=== PATIENT | female | born 2005 ===

== ENCOUNTER 2025-02-01 00:36 | Emergency (ER) | payer OTHER, SELFPAY ==
[2025-02-01 00:40] VITALS: BP 130/90; PULSE 65; RESP 18; TEMP 36.7; O2SAT 99; BMI 26.6
--- NOTE | 2025-02-01 00:49 | ED_ITS ---
HPI - Abdominal Pain General Time Seen by Provider: 00:49 Date Seen: 02/01/25 Chief Complaint: Abdominal Pain Stated Complaint: Abdominal Pain Time Seen by Provider: 02/01/25 00:48 Source: patient and family (Significant other) Mode of arrival: EMS History of Present Illness HPI narrative: Marisol is a 19-year-old female with past medical history of chronic abdominal pain who presents to the emergency department by EMS for evaluation of abdominal pain. History is limited, per EMS patient complains of chronic abdominal pain, worsening pain for the past 3 hours, patient agitated, at was given droperidol prior to arrival. Patient's significant other reports history of chronic abdominal pain, with intermittent episodes of flare ups, typically improve with medications, time. Denies any recent fever, chills, chest pain, shortness of breath. Patient has history of cholecystectomy, appendectomy, tubal ligation, section. Related Data Home Medications ?Medication ?Instructions ?Recorded ?Confirmed No Known Home Medications 02/01/2508/27 Allergies Allergy/AdvReac Type Severity Reaction Status Date / Time No Known Drug Allergies Allergy Verified 02/01/25 00:42 Review of Systems Narrative Past medical history, past surgical history, medications, allergies, family history, and social history were reviewed with the patient. No additional pertinent items. A medically appropriate review of systems was performed with pertinent positives and negatives noted in HPI, all other systems negative. [facility] Medical History (Updated 02/01/25 @ 03:21 by Latoya Herman MD) Chronic abdominal pain ?R10.9 - Unspecified abdominal pain (ICD-10) ?G89.29 - Other chronic pain (ICD-10) Appendicitis ?K37 - Unspecified appendicitis (ICD-10) Biliary colic ?K80.50 - Calculus of bile duct without cholangitis or cholecystitis without obstruction (ICD-10) Surgical History (Updated 02/01/25 @ 00:53 by Brett Valencia RN) History of tubal ligation ?Z98.51 - Tubal ligation status (ICD-10) History of section ?Z98.891 - History of uterine scar from previous surgery (ICD-10) History of cholecystectomy ?Z90.49 - Acquired absence of other specified parts of digestive tract (ICD- 10) History of appendectomy ?Z90.49 - Acquired absence of other specified parts of digestive tract (ICD- 10) Exam Narrative: Exam Narrative: Gen: Afebrile, sleepy, in distress secondary to pain HEENT: Normocephalic, atraumatic, conjunctiva normal. MMM Neck: non-tender, supple Cardio: regular rate. regular rhythm Resp: Normal work of breathing, no respiratory distress, lungs clear bilaterally, no wheezing, rhonchi, rales Chest/Back: no visual signs of trauma, no midline tenderness, no CVA tenderness Abdomen: soft, non distension, + tenderness to palpation upper abdomen, no rebound, guarding, no peritoneal signs Neuro: alert and fully oriented. CN II-XII grossly intact. Grossly normal strength and sensation in all extremities. MSK: no deformities. Normal range of motion Integumentary/Skin: no rash visualized, normal color Psych: normal affect, normal behavior Const: Vital Signs, click to edit/add: Vital Signs - 24 hr 02/01/25 00:40 02/01/25 02:45 02/01/25 03:41 Temperature 98.0 F 98.0 F 98.0 F Pulse Rate [Right Pulse Oximeter] 65 60 Respiratory Rate 18 18 Blood Pressure [Ri ght Upper Arm] 130/90 H 125/85 Pulse Oximetry 99 99 Oxygen Delivery Me thod Room Air Room Air 02/01/25 03:42 Temperature 98.0 F Pulse Rate [Right Pulse Oximeter] 60 Respiratory Rate 18 Blood Pressure [Ri ght Upper Arm] 125/85 Pulse Oximetry Oxygen Delivery Me thod Course Vital Signs Vital signs: Initial Vital Signs Temperature 98.0 F 02/01/25 00:40 Temperature Source Temporal Artery Scan 02/01/25 00:40 Pulse Rate 65 02/01/25 00:40 Respiratory Rate 18 02/01/25 00:40 Blood Pressure 130/90 H 02/01/25 00:40 Blood Pressure Mean 103 02/01/25 00:40 Blood Pressure Position Supine 02/01/25 00:40 Pulse Oximetry 99 02/01/25 00:40 Oxygen Delivery Method Room Air 02/01/25 00:40 Vital Signs Temperature 98.0 F 02/01/25 00:40 Pulse Rate 65 02/01/25 00:40 Respiratory Rate 18 02/01/25 00:40 Blood Pressure 130/90 H 02/01/25 00:40 Pulse Oximetry 99 02/01/25 00:40 Oxygen Delivery Method Room Air 02/01/25 00:40 Temperature 98.0 F 02/01/25 03:42 Pulse Rate 60 02/01/25 03:42 Respiratory Rate 18 02/01/25 03:42 Blood Pressure 125/85 02/01/25 03:42 Pulse Oximetry 99 02/01/25 03:41 Oxygen Delivery Method Room Air 02/01/25 03:41 Medications Administered Medications: Discontinued Medications Generic Name Dose Route Start Last Admin Trade Name Alva PRN Reason Stop Dose Admin Famotidine 20 mg 02/01/25 02:38 02/01/25 02:45 Famotidine 10 Mg/Ml Inj IVP 02/01/25 02:39 20 mg ONCE ONE Administration Sodium Chloride 1,000 mls @ 1,000 mls/hr 02/01/25 01:00 02/01/25 02:14 0.9 % Sodium Chloride 1000 Ml IV 02/01/25 01:59 Infused .Q1H AME Infusion Ketorolac Tromethamine 15 mg 02/01/25 02:38 02/01/25 02:45 Ketorolac 15 Mg/Ml Inj IVP 02/01/25 02:39 15 mg ONCE ONE Administration Ondansetron HCl 4 mg 02/01/25 02:39 02/01/25 02:44 Ondansetron 2 Mg/Ml Inj IVP 02/01/25 02:40 4 mg ONCE ONE Administration MDM - Abdominal Pain MDM Narrative Medical decision making narrative: Marisol is a 19-year-old female with past medical history of chronic abdominal pain who presents the emergency department for for evaluation of abdominal pain. Upon arrival patient is nontoxic appearing, afebrile, sleepy secondary to droperidol given by EMS prior to arrival. Patient's significant other reports history of chronic abdominal pain with flare up similar. Reports history of cholecystectomy, appendectomy, tubal ligation, section. Per chart review patient was recently seen at [facility] for similar episode on 12/07/2024. Patient was treated with droperidol, comprehensive labs reassuring, and patient was discharged home. Upon arrival patient was treated with IV Pepcid, Toradol, 1 L IV fluid bolus. Comprehensive labs remarkable for mild leukocytosis with white blood cell count 11.4, hemoglobin 13.8, potassium slightly low at 3.5, anion gap elevated at 19, AST and ALT slightly elevated at 41, 45, normal bilirubin, normal lipase. On re-evaluation patient continue resting comfortably, sleeping, no distress however when awake patient she states she feels on well. Patient remains hemodynamically stable, I reviewed comprehensive labs with patient. Given patient's history of similar presentation, nonsurgical abdomen, reassuring laboratory test, extensive surgical history, low suspicious for acute intra- abdominal infection that would require CT imaging. I did discuss results and considered CT imaging however after discussion with patient, significant other, will hold off on imaging or further testing at this time. Significant other states this is similar to her prior presentations and feels comfortable with bringing her home to continue to rest. Plan for discharge with continued supportive care, close outpatient follow-up, strict return precautions discussed. Patient understands and agrees with the plan.. Medical Records Attestation: I reviewed the patient's medical records. Lab Data Attestation: I reviewed the patient's lab results. Labs: Lab Results 02/01/25 Range/Units 01:06 WBC 11.43 H (4.50-11.00) K/uL RBC 4.69 (4.00-5.20) m/uL Hgb 13.8 (12.0-16.0) gm/dL Hct 39.6 (33.0-51.0) % MCV 84 (80-100) fL MCH 29 (26-34) pg MCHC 35 (32-36) gm/dL RDW Coeff of Paula 12.6 (11.5-15.5) % Plt Count 239 (140-440) K/uL Neut % (Auto) 82.8 H (42.0-72.0) % Lymph % (Auto) 10.3 L (20-44) % [place] % (Auto) 4.6 (0.0-11.0) % Eos % (Auto) 0.1 (0.0-7.0) % Baso % (Auto) 0.5 (0.0-3.0) % Neut # (Auto) 9.50 H (1.7-7.0) K/uL Lymph # (Auto) 1.20 (0.90-2.90) K/uL [place] # (Auto) 0.50 (0.00-0.90) K/UL Eos # (Auto) 0.00 (0.00-0.50) K/uL Baso # (Auto) 0.10 (0.00-0.30) K/uL Abs Immat Gran (auto) 0.20 (0.00-0.30) K/uL Imm/Tot Granulo (auto) 1.7 % Sodium 142 (135-149) mmol/L Potassium 3.5 L (3.6-5.1) mmol/L Chloride 107 (96-114) mmol/L Carbon Dioxide 16 L (20-32) mmol/L Anion Gap 19 H (7-15) mEq/L BUN 9 (5-24) mg/dL Creatinine 0.8 (0.5-1.5) mg/dL Estimated Creat Clear 100.10 Estimated GFR 107 ml/min Glucose 175 H (60-115) mg/dL Calcium 10.4 (8.4-10.6) mg/dL Total Bilirubin 1.4 (0.1-1.5) mg/dL AST 41 H (12-35) U/L ALT 45 H (4-35) U/L Alkaline Phosphatase 53 (40-150) U/L Total Protein 8.4 H (6.0-8.3) g/dL Albumin 5.0 (3.3-5.0) g/dL Lipase 65 (23-300) U/L HCG, Qual Negative (Negative) Ethyl Alcohol < 0.01 (0.01-0.03) % Discharge Plan Discharge Clinical Impression: Abdominal pain Patient Disposition: Home, Self-Care Condition: Improved Additional Instructions: Please follow-up with your primary care provider in the next 3-5 days for further evaluation and follow-up. Please call to schedule appointment. Please rest, drink plenty of fluids. Please take [id number] Tylenol, ibuprofen as needed for pain. Please return to the emergency department if you develop high fever, severe pain, persistent vomiting, worsening symptoms. It was a pleasure taking care of you today. We hope you feel better soon. Prescriptions: No Action No Known Home Medications Follow Up/Referrals: Provider,Not a Local [Primary Care Provider, Family Practice] Stand Alone Forms: [employer] Info Instructions
[2025-02-01 01:16] LABS: Hematocrit 39.6 % (33.0-51.0); Hemoglobin* 13.8 gm/dL (12.0-16.0); Immature Granulocytes Pct Auto 1.7 %; Mean Corpuscular HGB Conc 35 gm/dL (32-36); Mean Corpuscular Hemoglobin 29 pg (26-34); Mean Corpuscular Volume 84 fL (80-100); RDW Coefficient of Variation % 12.6 % (11.5-15.5); Red Blood Count 4.69 m/uL (4.00-5.20); White Blood Count* 11.43 K/uL (4.50-11.00)
[2025-02-01 01:27] LABS: Immature Granulocytes Abs Auto 0.20 K/uL (0.00-0.30); Lymphocytes Absolute Auto 1.20 K/uL (0.90-2.90); Slide Review Reflex No
[2025-02-01 01:31] LABS: Albumin* 5.0 g/dL (3.3-5.0); Chloride* 107 mmol/L (96-114); Potassium* 3.5 mmol/L (3.6-5.1); Sodium* 142 mmol/L (135-149)
[2025-02-01 01:33] LABS: Blood Urea Nitrogen* 9 mg/dL (5-24); Creatinine* 0.8 mg/dL (0.5-1.5); Est. Creatinine Clearance* 100.10; Estimated Glomerular Filt Rate 107 ml/min
[2025-02-01 01:34] LABS: Alanine Aminotransferase* 45 U/L (4-35); Alkaline Phosphatase* 53 U/L (40-150); Anion Gap 19 mEq/L (7-15); Aspartate Amino Transferase* 41 U/L (12-35); Bilirubin Total* 1.4 mg/dL (0.1-1.5); Calcium* 10.4 mg/dL (8.4-10.6); Carbon Dioxide* 16 mmol/L (20-32); Glucose* 175 mg/dL (60-115); Total Protein* 8.4 g/dL (6.0-8.3)
[2025-02-01 01:37] LABS: Ethanol* < 0.01 % (0.01-0.03)
[2025-02-01 02:29] LABS: HCG Qualitative Serum* Negative (Negative)
[2025-02-01] MEDS: ONDANSETRON 2 MG/ML inj 4 MG IVP (02:44)
[2025-02-01 02:45] VITALS: TEMP 36.7
[2025-02-01] MEDS: FAMOTIDINE 10 MG/ML inj 20 MG IVP (02:45)
--- OUTSIDE RECORDS SUMMARY | 2025-02-01 03:10 | XMS_ITS | Clinical Summary ---
Author Organization [place] Address [facility] [place] [address] Care Team Providers Care Ingot Stripper Name Role Phone Yun Blake Primary Care Provider [phone] Allergies No known active allergies Medications doxylamine (UNISOM) 25 MG TABS tablet Take 1 tablet (25 mg) by mouth at bedtime for 14 days for nausea and vomiting. 14 tablet 04/23/2023 Active ondansetron (ZOFRAN ODT) 4 MG ODT tab Take 1 tablet (4 mg) by mouth every 8 hours as needed for nausea or vomiting 10 tablet 04/23/2023 Active prochlorperazin e (COMPAZINE) 10 MG tablet Take 1 tablet (10 mg) by mouth every 6 hours as needed for nausea or vomiting 20 tablet 05/02/2023 Active Active Problems Problem Noted Date Diagnosed Date Appendicitis 08/29/2021 Vitamin D deficiency 05/09/2016 Non morbid obesity due to excess calories 2015 Encounters Date Type Department Care Team Description 12/07/2024 3:47 AM CDT - 12/07/2024 8:[address] 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 Gender Identity Not on file Sexual Orientation Not on file Last Filed Vital Signs Vital Sign Reading Time Taken Comments Blood Pressure 129/82 12/07/2024 3:54 AM CDT Pulse 77 12/07/2024 3:54 AM CDT Temperature 36.5 C (97.7 F) 12/07/2024 3:54 AM CDT Respiratory Rate 18 12/07/2024 3:54 AM CDT Oxygen Saturation 100% 12/07/2024 3:54 AM CDT Inhaled Oxygen Concentration - - Weight 112.5 kg (248 lb) 05/02/2023 8:57 AM CDT Height 165.1 cm (5' 5) 05/02/2023 8:57 AM CDT Body Mass Index 41.27 05/02/2023 8:57 AM CDT Plan of Treatment Health Maintenance Due Date Last Done Comments ADVANCE CARE PLANNING 2003 ANNUAL REVIEW OF HM ORDERS 2003 HPV VACCINE (2 - 2-dose series) 03/10/2018 09/07/2017 MENINGITIS B VACCINE (1 of 2 - Standard) 2019 YEARLY PREVENTIVE VISIT 03/08/2023 03/08/2022 COVID-19 VACCINE (1 - 2023- season) 2024 PAP 2024 PHQ-2 (once per calendar year) 2024 CHLAMYDIA SCREENING 09/16/2024 09/17/2023, INFLUENZA VACCINE (#1) 2025 DTAP/TDAP/TD VACCINE (8 - Td or Tdap) 08/24/2032 08/24/2022, 09/07/2017, 06/17/2008, Additional history exists ZOSTER VACCINE (1 of 2) 2053 PNEUMOCOCCAL VACCINE: PEDIATRICS (0 to 5 YEARS) AND AT-RISK PATIENTS (6 to 49 YEARS) Aged Out 2003, 2003, 2003 No longer eligible based on patient's age to complete this topic HEPATITIS B VACCINE Completed 03/25/2004, 2003, 2003 MENINGITIS VACCINE Aged Out 09/07/2017 No longer eligible based on patient's age to complete this topic HEPATITIS C SCREENING Completed 05/04/2023 HIV SCREENING Completed 05/04/2023 Procedures Procedure Name Priority Date/Time Associated Diagnosis Comments CBC WITH PLATELETS & DIFFERENTIAL STAT 12/07/2024 3:57 AM CDT HEPATIC FUNCTION PANEL STAT 12/07/2024 3:57 AM CDT LIPASE STAT 12/07/2024 3:57 AM CDT ETHANOL LEVEL BLOOD STAT 12/07/2024 3 :57 AM CDT CBC WITH PLATELETS AND DIFFERENTIAL STAT 12/07/2024 3:57 AM CDT BASIC METABOLIC PANEL STAT 12/07/2024 3:57 AM CDT EKG 12-LEAD, TRACING ONLY STAT 12/07/2024 3:54 AM CDT from Last 3 Months Results * CBC with platelets and differential (12/07/2024 3:57 AM CDT) WBC Count 7.1 4.0 - 11.0 10e3/uL 12/07/2024 4:14 AM CDT [facility] RBC Count 4.23 3.80 - 5.20 10e6/uL 12/07/2024 4:14 AM CDT [facility] Hemoglobin 12.3 11.7 - 15.7 g/dL 12/07/2024 4:14 AM CDT [facility] Hematocrit 35.5 35.0 - 47.0 % 12/07/2024 4:14 AM CDT [facility] MCV 84 78 - 100 fL 12/07/2024 4:14 AM CDT [facility] MCH 29.1 26.5 - 33.0 pg 12/07/2024 4:14 AM CDT [facility] MCHC 34.6 31.5 - 36.5 g/dL 12/07/2024 4:14 AM CDT [facility] RDW 12.8 10.0 - 15.0 % 12/07/2024 4:14 AM CDT [facility] Platelet Count 211 150 - 450 10e3/uL 12/07/2024 4:14 AM CDT [facility] % Neutrophils 62 % 12/07/2024 4:14 AM CDT [facility] % Lymphocytes 28 % 12/07/2024 4:14 AM CDT [facility] % Monocytes 7 % 12/07/2024 4:14 AM CDT [facility] % Eosinophils 1 % 12/07/2024 4:14 AM CDT [facility] % Basophils 1 % 12/07/2024 4:14 AM CDT [facility] % Immature Granulocytes 0 % 12/07/2024 4:14 AM CDT [facility] NRBCs per 100 WBC 0 <1 /100 025 4:14 AM CDT [facility] Absolute Neutrophils 4.4 1.6 - 8.3 10e3/uL 12/07/2024 4:14 AM CDT [facility] Absolute Lymphocytes 2.0 0.8 - 5.3 10e3/uL 12/07/2024 4:14 AM CDT [facility] Absolute Monocytes 0.5 0.0 - 1.3 10e3/uL 12/07/2024 4:14 AM CDT [facility] Absolute Eosinophils 0.1 0.0 - 0.7 10e3/uL 12/07/2024 4:14 AM CDT [facility] Absolute Basophils 0.1 0.0 - 0.2 10e3/uL 12/07/2024 4:14 AM CDT [facility] Absolute Immature Granulocytes 0.0 <=0.4 10e3/uL 12/07/2024 4:14 AM CDT [facility] Absolute NRBCs 0.0 10e3/uL 12/07/2024 4:14 AM CDT [facility] Blood BLOOD SPECIMEN / Unknown Venipuncture / Unknown 12/07/2024 3:57 AM CDT 12/07/2024 4:11 AM CDT us Franklyn Vogt MD LAB - BLO OD ORDERABLES Final Result [facility] Lab [address] Lab (1st floor, no room number) [place] [address], [place] * Lipase (12/07/2024 3:57 AM CDT) Lipase 26 13 - 60 U/L 12/07/2024 4:38 AM CDT [facility] Blood BLOOD SPECIMEN / Unknown Venipuncture / Unknown 12/07/2024 3:57 AM CDT 12/07/2024 4:11 AM CDT Franklyn Vogt MD LAB - BLO OD ORDERABLES Final Result [facility] Acute [facility] Lab [address] Lab (1st floor, no room number) [place] [address], [facility] * Hepatic function panel (12/07/2024 3:57 AM CDT) Pathologist [facility] Protein Total 7.3 6.4 - 8.3 g/dL 12/07/2024 6:04 AM CDT [facility] Albumin 4.2 3.5 - 5.2 g/dL 12/07/2024 6:04 AM CDT [facility] Bilirubin Total 0.5 <=1.2 mg/dL 12/07/2024 6:04 AM CDT [facility] Alkaline Phosphatase 49 40 - 150 U/L 12/07/2024 6:04 AM CDT [facility] AST 33 0 - 45 U/L 12/07/2024 6:04 AM CDT [facility] ALT 41 0 - 50 U/L 12/07/2024 6:04 AM CDT [facility] Bilirubin Direct 0.11 0.00 - 0.30 mg/dL 12/07/2024 6:04 AM CDT [facility] Comment:As of 24, refer ence ranges and trending lines may vary depending on the testing location. Blood BLOOD SPECIMEN / Unknown Venipuncture / Unknown 12/07/2024 3:57 AM CDT 12/07/2024 4:11 AM CDT Franklyn Vogt MD LAB - BLO OD ORDERABLES Final Result [facility] Acute [facility] Lab [address] Lab (1st floor, no room number) [place] [address] * (ABNORMAL) Ethanol Level Blood (12/07/2024 3:57 AM CDT) Ethanol Level Blood 0.16(H) <=0.01 g/dL 12/07/2024 4:38 AM CDT [facility]ORATORY Blood BLOOD SPECIMEN / Unknown Venipuncture / Unknown 12/07/2024 3:57 AM CDT 12/07/2024 4:11 AM CDT Franklyn Vogt MD LAB - BLO OD ORDERABLES Final Result [facility] Lab [address] Lab (1st floor, no room number) [place] [address] * (ABNORMAL) Basic metabolic panel (12/07/2024 3:57 AM CDT) Sodium 136 135 - 145 mmol/L 12/07/2024 4:38 AM CDT LABORATORY Potassium 3.2(L) 3.4 - 5.3 mmol/L 12/07/2024 4:38 AM CDT LABORATORY Chloride 102 98 - 107 mmol/L 12/07/2024 4:38 AM CDT LABORATORY Carbon Dioxide (CO2) 18(L) 22 - 29 mmol/L 12/07/2024 4:38 AM CDT LABORATORY Anion Gap 16(H) 7 - 15 mmol/L 12/07/2024 4:38 AM CDT LABORATORY Urea Nitrogen 7.6 6.0 - 20.0 mg/dL 12/07/2024 4:38 AM CDT LABORATORY Creatinine 0.72 0.51 - 0.95 mg/dL 12/07/2024 4:38 AM CDT LABORATORY GFR Estimate >90 >60 mL/min/1.7 3m2 12/07/2024 4:38 AM CDT [facility] Comment:eGFR calculated usin 2020 CKD-EPI equation. Calcium 9.3 8.8 - 10.4 mg/dL 12/07/2024 4:38 AM CDT [facility] Glucose 113(H) 70 - 99 mg/dL 12/07/2024 4:38 AM CDT [facility] Blood BLOOD SPECIMEN / Unknown Venipuncture / Unknown 12/07/2024 3:57 AM CDT 12/07/2024 4:11 AM CDT us Franklyn Vogt MD LAB - BLO OD ORDERABLES Final Result [facility] [address] [facility], no room number) [place] [address] * EKG 12-lead, tracing only (12/07/2024 3:54 AM CDT) Systolic Blood Pressure mmHg RADIOLOGY RESULTS Diastolic Blood Pressure mmHg RADIOLOGY RESULTS Ventricular Rate 74 BPM RAD IOLOGY RESULTS Atrial Rate 74 BPM RADIOLOG Y RESULTS WA Interval 150 ms RADIOLOG Y RESULTS QRS Duration 106 ms RADIOLO GY RESULTS QT 396 ms RADIOLOGY RESULTS QTc 439 ms RADIOLOGY RESULTS P [place] 39 degrees RADIOLOGY RESULTS R AXIS 93 degrees RADIOLOGY RESULTS T [place] 33 degrees RADIOLOGY RESULTS Interpretation ECG Unconfirmed report - interpretation of this ECG is computer generated - see medical record for final interpretation Sinus rhythm Rightward axis Nonspecific ST abnormality Abnormal ECG No previous ECGs available Confirmed by - EMERGENCY ROOM, PHYSICIAN ([id number]), publications editor MYRON BLAKE (Mendoza) on 12/09/2024 8:20:56 AM RADIOLOGY RESULTS 12/07/2024 3:54 AM CDT 12/09/2024 8:20 AM CDT us Franklyn Vogt MD ECG ORDER MAGALIS Edited Result - Final RADIOLOGY RESULTS from Last 3 Months Insurance [facility] [id number] [place] [address] [facility] Care Teams Ingot Stripper Relationship Specialty Start Date End Date Yun Blake PCP - General 04/23/23
--- OUTSIDE RECORDS SUMMARY | 2025-02-01 03:11 | XMS_ITS | Clinical Summary ---
Author Organization [facility] Address [address] [place] [id number] Care Team Providers Care Production Pattern Maker Name Role Phone None Reported, Pcp Primary Care Provider Unavail able Source Comments Patient records contain information from all sites at [facility]. For routine questions regarding patient records, call [phone] during business hours, M-F 8:00 AM - 5:00 PM Central Time. 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 Gender Identity Not on file Sexual Orientation Not on file Last Filed Vital Signs Vital Sign Reading Time Taken Comments Blood Pressure 114/60 05/07/2024 11:29 AM FACILITIES MAINTENANCE ASSISTANT Pulse 56 05/07/2024 11:29 AM FACILITIES MAINTENANCE ASSISTANT Temperature 36.4 C (97.6 F) 05/07/2024 9:19 AM FACILITIES MAINTENANCE ASSISTANT Respiratory Rate - - Oxygen Saturation 100% 05/07/2024 11:29 AM FACILITIES MAINTENANCE ASSISTANT Inhaled Oxygen Concentration - - Weight 96.2 kg (212 lb) 05/07/2024 9:18 AM FACILITIES MAINTENANCE ASSISTANT Height - - Body Mass Index - - Plan of Treatment Health Maintenance Due Date Last Done Comments Cervical/Vaginal Cancer Screening 2003 Chlamydia and Gonorrhea Screening 2003 HIV Screening 2003 Hearing Screening during Well Child Visit 2003 Hepatitis C Screening 2003 TB Screening during Well Child Visit 2003 1 week Well Child Check-Up 2003 1 month Well Child Check-Up 2003 2 month Well Child Check-Up 2003 4 month Well Child Check-Up 2003 9 month Well Child Check-Up 01/24/2004 Hepatitis B Vaccines (2 of 3 - 3-dose series) 04/22/2004 03/25/2004 15 month Well Child Check-Up 07/26/2004 18 month Well Child Check-Up 10/24/2004 2 year Well Child Check-Up 04/25/2005 30 month Well Child Check-Up 10/24/2005 3 year Well Child Check-Up 04/25/2006 Well Child Check-Up Completed in Past Year 04/25/2006 5 year Well Child Check-Up 04/25/2008 6 year Well Child Check-Up 04/25/2009 7 year Well Child Check-Up 04/25/2010 8 year Well Child Check-Up 04/25/2011 10 year Well Child Check-Up 04/25/2013 10 year Well Child Check-Up 04/25/2015 11 year Well Child Check-Up 04/25/2016 12 year Well Child Check-Up 04/25/2017 HPV Vaccines (2 - 2-dose series) 03/10/2018 09/07/2017 15 year Well Child Check-Up 04/25/2018 17 year Well Child Check-Up 04/25/2020 18 year Well Child Check-Up 04/25/2021 17 year Well Child Check-Up 04/25/2022 18 year Well Child Check-Up 04/25/2023 COVID-19 Vaccine ( season) 2024 19 year Well Child Check-Up 04/25/2024 Well Child Check-Up (WC) 04/25/2024 Depression Screening (Annual PHQ-2) 07/03/2024 Influenza Vaccine (#1) 2025 DTaP,Tdap,and Td Vaccines (8 - Td or Tdap) 08/24/2032 08/24/2022, 09/07/2017, 06/17/2008, Additional history exists Pneumococcal vaccine (0-49 years) Aged Out 2003, 2003, 2003 No longer eligible based on patient's age to complete this topic IPV Vaccines Completed 06/17/2008, 03/04, 2003, Additional history exists Meningococcal Vaccine Aged Out 09/07/2017 No [place] zo[place] eligible based on patient's age to complete this topic Hepatitis B Screening Discontinued 05/04/[address] [place] [phone] [facility] Care Teams Production Pattern Maker Relationship Specialty Start Date End Date None Reported, Pcp PCP - General 05/10/24
--- OUTSIDE RECORDS SUMMARY | 2025-02-01 03:11 | XMS_ITS | Clinical Summary ---
Author Organization [facility] Address [address] [place] [id number] Care Team Providers Care Electromechanical Assembly Technician Name Role Phone Yun Blake MD Unavailable [phone] Carmen Enriquez MD Unavailable Sonia Saleh RN Unavailable [phone] Pcp, No Primary Care Provider Unavailabl e Allergies No known active allergies Medications omeprazole (PRILOSEC) 20 mg Delayed-Release capsule TAKE 1 CAPSULE BY MOUTH EVERY DAY 30 MINUTES TO 1 HOUR BEFORE A MEAL 05/27/2024 Active oxyCODONE (ROXICODONE) 5 mg immediate release tabletIndication s:Sterilization consult,S/P laparoscopy with lysis of adhesions Take 1-2 Tablets (5-10 mg) by mouth every 4 hours if needed for Pain. 20 Tablet 06/28/2024 8:08 PM REJOINER 06/28/2024 Active naproxen (ALEVE) 220 mg tabletIndication s:Encounter for sterilization,St erilization consult,S/P laparoscopy with lysis of adhesions Take 1 Tablet (220 mg) by mouth every 12 hours. 40 Tablet 1 06/28/2024 8:08 PM REJOINER 06/28/2024 Active Active Problems Problem Noted Date Diagnosed Date Class 2 severe obesity with body mass index (BMI) of 35 to 39.9 with serious comorbidity 12/15/2023 Biliary colic 09/27/2023 Resolved Problems Problem Noted Date Diagnosed Date Resolved Date care in third trimester 09/29/2023 12/15/2023 Abdominal pain affecting 09/26/2023 12/15/2023 Supervision of normal 09/17/2023 12/15/2023 Abdominal pain affecting pre gnancy, antepartum 09/17/2023 12/15/2023 Previous delivery, antepartum 07/04/2023 12/15/2023 Overview (07/04/2023): Hx of 2022, Chorio, CPD arrest of dilation, Hx PP HTN: Normal appearing ANTERIOR placenta in current ([facility] Level II 07/04/23) Short interval between pregn ancies affecting in second trimester, antepartum 07/04/2023 12/15/2023 MPP High-risk supervision 06/23/2023 12/15/2023 Overview (06/23/2023): Marisol Esquivel : 2005 [facility] ULTRASOUND/TESTING PATIENT [facility] CONSULT ON Support person name: Community Support Specialist: NO ULTRASOUND TYPE: L2 REASON FOR VISIT: BMI 40 NEXT VISIT ALERTS: Final ELMER by Early US LMP Date: No LMP recorded (lmp unknown). Patient is . ELMER: Early US: Date: 05/02/23 GA: 12w0d ELMER: 11/17/23 IVF Date: PrePregnancy Weight: 245 # Height: 65 in BMI: 40.7 PLANS & FUTURE APPOINTMENTS: ULTRASOUND/GROWTH PLAN: - Through: - Growth: Next TESTING PLAN: - Testing: Through DELIVERY PLAN: - Scheduled delivery: - Preferred delivery location: PRIMARY DIAGNOSIS: 18 y.o. Estimated Date of Delivery: 11/17/23 MATERNAL 17 yo teen preg P C/B 10/2019 chorio, CPD arrest of dilation BMI 40 PREVIOUS ULTRASOUNDS: Next 07/04/23 (PCP) 05/02/23 GA: 12w0d ELMER: 11/17/23 ECHO: REFERRING PHYSICIAN/PHONE/LAST UPDATE: [facility], Primary MD approves scheduling of recommended ultrasounds/testing: No SPECIALISTS/CONSULTS: Include: Specialty MD Clinic Name Phone# [place] and ADDED TO PATIENT CARE TEAM GENETICS: NIPT: low risk AFP: planning CARE COORDINATION: PERTINENT LABS: Labs reviewed? Yes Normal? Yes 05/04/23 Blood type: A Rh Positive Antibody screen: Negative Non-[facility] labs need to be entered in [facility]? No PERTINENT MEDS: PROCEDURES: IF FGR <10% or EFW <2000 grams: Add FGRPCOM PLAN OF CARE: Original and updated POC Supervision of other normal , antepartum 05/16/2023 12/15/2023 Overview (05/16/2023): Gestational age at time of intake: 13w4d Patient preferred name: Marisol Macario Hx: Closely Spaced Pregnancies, Obesity, Hx PP HTN, Hx x 1 Concerns this : OB Hx: OB History Para Term AB Living 2 1 1 0 0 1 SAB IAB Ectopic Multiple Live Births 0 0 0 0 1 # Outcome Date GA Lbr Hugo/2nd Weight Sex Delivery Anes PTL Lv 2 Current 1 Term 10/30/22 38w6d 3.48 kg (7 lb 10.8 oz) M EPIDURAL CORRINE Complications: Chorioamnionitis, Prolonged latent phase, Cephalopelvic Disproportion, Arrest of dilatation Obstetric Comments G1: Labor was scheduled to be induced at 39w due to maternal morbid obesity, but presented in spontaneous labor at 38w5d with SVE 6/90/-2, but dilation stalled at 5cm. Mother had a positive sepsis screen with temperature 100F and rapid response team response was initiated for chorioamnionitis. Pitocin started to augment labor, but due to arrest of dilation (despite adequate MVUs) and developing hypertension, decision was made to proceed to primary section. Early GTT indicated: Yes If yes: BMI >25, pre- BMI > 40 Hx of thyroid disorder: No ASA indicated-High Risk for preeclampsia: Defer to MD - Hx PP HTN on meds Genetic screening: Desires Jessiedee Leija with gender BMI: 40.77 >30 recommended weight gain -# Level II FAS at [facility] indicated: pre- BMI>30: Yes Smoker: No HSV: Denies Ultrasound: 05/04/2023 - Single IUP at 11.6 weeks with ELMER 11/17/2023 Flu vaccine: Declined COVID-19 vaccine: Declined Pertussis Vaccine: Peds: [facility] - Dr. [place] Domestic violence screen: Denies Partners name: Latrice Donato Primigravida in first trimester 04/28/2023 07/04/2023 Nausea & vomiting 04/28/2023 07/04/2023 Abdominal pain 04/28/2023 07/04/2023 Constipation 04/28/2023 07/04/2023 Supervision of normal first , antepartum 04/21/2022 07/04/2023 Overview (10/24/2022): Estimated Date of Delivery: 11/07/22 OBHX: OB Provider:Hayden Occupation: [employer] FOB: Latrice Mobile Patrol Officer: Blood type: A positive First trimester screen:Panorama with insufficient DNA> referred to MPP>test was not repeated US:L2 normal, EFW 63%, posterior placenta ; Sex: Gtt/Hgb/treponema: early gtt never done, 128/12.1/neg GBS status: negative TDAP: 08/24/22 Flu: declines Pap: N/A due to age Breast pump rx: Completed 10/03/22 PP visit scheduled: COVID-19: declines, had COVID-19 04/2021 Alerts: 1) 04/02/22 US, has small AME 2) H/o Vitamin D deficiency>will supplement 3) H/o hypothyroidism as a child, resolved, no meds -TSH and free t4 ordered for IOB visit 4)BMI 45 5) LGA baby, EFW at 32 weeks was 2484g or 92%ile -at 36w0d: EFW 3634g, 97% Management plans: - TESTING: L2 for BMI normal> standard recs for growth USs and weekly BPP/NST at starting at 32 weeks were made by MPP> orders placed - DELIVERY:IOL at 39 weeks due to BMI> IOL scheduled for 10/31/22 pm, H and P and orders done Encntr for suprvsn of normal preg, unsp, first trimester 03/21/2022 12/15/2023 Overview (03/21/2022): Gestational age at time of intake: 7w0d Medical Hx: Obesity Concerns this : Primip; risk for gestational diabetes OB Hx: OB History Para Term AB Living 1 0 0 0 0 0 SAB IAB Ectopic Multiple Live Births 0 0 0 0 0 # Outcome Date GA Lbr Hugo/2nd Weight Sex Delivery Anes PTL Lv 1 Current Early GTT indicated: YES If yes: BMI >25 and physical inactivity Hx of thyroid disorder: did as a child; does not have thyroid disorder at this time ASA indicated-High Risk for preeclampsia: NO Level 2 FAS indicated (pre-preg BMI>30): NO Genetic screening: undecided; information reviewed BMI: 45.5; >30 recommended weight gain 11-20# If prepregnancy BMI >30: YES; Send to provider for Level II @ MPP Smoker: NO HSV: NO Ultrasound: ordered Flu vaccine: not received COVID-19 vaccine: not received Pertussis Vaccine: 08/2017 Domestic violence screen: safe and supportive Partners name (if applicable): Latrice Tian RN Women's Health Triage .................... 03/21/2022 4:12 PM Appendicitis 08/29/2021 12/15/2023 Vitamin D deficiency 05/09/2016 024 Maternal morbid obesity in s econd trimester, antepartum 05/05/2016 12/15/2023 Immunizations Immunization Administration Dates Next Due DTaP 06/17/2008, 5,2003,09/23,2003 HIB HbOC (HibTITER) 07/30/2004,2003 HIB PRP-T (ActHIB,Hiberix) 07/30/2004,,2003,07/25 HPV 9 (Gardasil 9) 09/07/2017 Hepatitis B (Peds) 03/25/2004,2003, 004 Hepatitis B, Unspecified 03/25/2004 Inactivated Polio Vaccine 06/17/2008,,2003,07/25 MENINGOCOCCAL VACCINE 2 VIAL 2MO-55YO (MENVEO) 09/07/2017 MMR 06/17/2006,07/30/2004 Pneumococcal conj 13-Valent (Prevnar 13) 2003,2003,2003 Pneumococcal conj 7-Valent (Prevnar 7) 4,2003,2003 Polio Virus, Unspecified 03/25/2004 Tdap 08/24/2022,09/07/2017 Varicella Vaccine 06/17/2008,2003 Family History Medical History Relation Name Comments Good Health Father Good Health Half-Brother Good Health Half-Sister 1 Good Health Half-Sister 2 Good Health Half-Sister 3 Good Health Half-Sister 4 Good Health Maternal Grandfather Good Health Maternal Grandmother Good Health Mother Good Health Paternal Grandfather Good Health Paternal Grandmother Good Health Son Relation Name Status Comments Father Alive Half-Brother Alive Half-Sister 1 Alive Half-Sister 2 Alive Half-Sister 3 Alive Half-Sister 4 Alive Maternal Grandfather Alive Maternal Grandmother Alive Mother Alive Paternal Grandfather Alive Paternal Grandmother Alive Son Alive Social History Tobacco Use Types Packs/Day Years Used Date Smoking Tobacco: Never Smokeless Tobacco: Never Tobacco Cessation:Counseling Given: Yes Alcohol Use Standard Drinks/Week Comments No 0 (1 standard drink = 0.6 oz pur e alcohol) PHQ-2 Answer Date Recorded PHQ-2 TOTAL SCORE 0 12/14/2023 Social Connections Answer Date Recorded Do you often feel lonely or isolated from those around you? 0 01/02/2024 Financial Resource Strain Answer Date R ecorded Difficulty of Paying Living Expenses 3 04/28/2023 Difficulty of Paying Living Expenses Not on file 04/28/2023 Food Insecurity Answer Date Recorded Do you worry your food will run out before you are able to buy more? 1 01/02/2024 Transportation Needs Answer Date Record ed Does lack of transportation keep you from medica l appointments? 1 01/02/2024 Does lack of transportation keep you from work, meetings or getting things that you need? 1 01/02/2024 Housing Stability Answer Date Recorded What is your housing situation today? 1 01/02/2024 Interpersonal Safety Answer Date Record ed Are you being hit, kicked, p ushed or yelled at (see row info)? No 07/29/2024 Interpersonal Safety Abuse 12 - 18 Not on file 07/29/2024 Interpersonal Safety Ambulatory Vulnerability No t on file 07/29/2024 Utilities Answer Date Recorded Do you have trouble paying f or utilities (for example, heat, electricity, water, phone)? 1 01/02/2024 Comments No Sex and Gender Information Value Date Recorded Sex Assigned at Not on file Legal Sex Female 3:46 PM CDT Gender Identity Not on file Sexual Orientation Not on file Occupation Industry Job Start Date Job End Date Student Not on file Not on file Not on file Obstetrics History Para Term AB IAB SAB Ectopic Multiple Livin g Live Births 2 2 2 0 0 0 0 0 0 2 2 Date Outcome GA Total Labor Labor/2nd/3rd Weight Sex Type Anes PTL Corrine A1 A5 Name Clin 2022 Term 38w 6d 0h 03m 0h 03m 3.48 kg (7 lb 10.8 oz) M C-Sec tion Epidur al Livin g 8 9 Rylee Motley MD Complications:Intraamniotic Infection,Prolonged latent phase,Cephalopelvic Disproportion,Arrest of dilatation Delivery Location:Hospital ( [facility] [address] L&D TRIAGE) 2023 Term 37w 3d 0h 01m 0h 01m 2.6 kg (5 lb 11.7 oz) F C-Sec tion Spinal Livin g 8 9 Steff Hope r-Elmer ins, Jacinta hamm MD Delivery Location:Hospital ( [facility] [address] L&D TRIAGE) Comments G1: Labor was scheduled to b e induced at 39w due to maternal morbid obesity, but presented in spontaneous labor at 38w5d with SVE 6/90/-2, but dilation stalled at 5cm. Mother had a positive sepsis screen with temperature 100F and rapid response team response was initiated for chorioamnionitis. Pitocin started to augment labor, but due to arrest of dilation (despite adequate MVUs) and developing hypertension, decision was made to proceed to primary section. Last Filed Vital Signs Vital Sign Reading Time Taken Comments Blood Pressure 127/57 06/29/2024 6:00 AM REJOINER Pulse 108 07/29/2024 11:59 AM REJOINER Temperature 36.3 C (97.4 F) 07/29/2024 11:59 AM REJOINER Respiratory Rate 20 07/29/2024 11:59 AM REJOINER Oxygen Saturation 100% 07/29/2024 11:59 AM REJOINER Inhaled Oxygen Concentration - - Weight 83.9 kg (185 lb) 07/29/2024 11:59 AM REJOINER Height 165.1 cm (5' 5) 07/29/2024 11:59 AM REJOINER Body Mass Index 30.79 07/29/2024 11:59 AM REJOINER Plan of Treatment Health Maintenance Due Date Last Done Comments HPV series for age 9-26 (2 - 2-dose series) 03/10/2018 09/07/2017 COVID-19 vaccine series ( season) 2024 Pap test for age 21-65 2024 Chlamydia for age 16-24 09/16/2024 09/17/19, 05/04/2023, 04/25/2022 Depression screening for age 12+ 12/14/2024 12/15/2023, 12/15/2023, 12/14/2023, Additional history exists Influenza Vaccine (#1) 2025 BMI (ht and wt on same day) for age 18+ 06/19/2025 06/19/2024, 12/14/2023, 05/16/2023, Additional history exists Tetanus booster 08/24/2032 08/24/2022, 09/07/2017 Pneumococcal series for age 6-49 Aged Out 2003, 2003, 2003, Additional history exists No longer eligible based on patient's age to complete this topic Hepatitis B series for 19+ Completed 03/25, 03/25/2004, 2003, Additional history exists Meningococcal series for age 11-21 Aged Out 09/07/2017 No longer eligible based on patient's age to complete this topic HIV for age 15-65 Completed 05/04/2023, 08/24/2022 Hepatitis C screening for age 18-79 Completed 05/04/2023, 08/24/2022 Procedures Procedure Name Priority Date/Time Associated Diagnosis Comments GC CHLAMYDIA TRACH PROBE Today 09/17/2023 3:20 PM CDT ANTI HIV 1/2 Routine 05/04/2023 11:32 AM CDT Early stage of (HC) Obesity in (HC) ANTI HCV Routine 05/04/2023 11:32 AM CDT Early stage of (HC) Obesity in (HC) from Last 3 Months or Most Recently Relevant to Health Maintenance Results * GC CHLAMYDIA TRACH PROBE (09/17/2023 3:20 PM CDT) CHLAMYDIA PROBE Negative 2:08 AM CDT [facility] N GONORRHOEAE PROBE Negative 09/18/2023 2:08 AM CDT [facility] Other VAGINAL SWAB / Unknown Non-Blood / Unknown 09/17/2023 3:20 PM CDT 09/17/2023 3:26 PM CDT us Debi Whitaker MD MICROBIOLOGY Final Result Performing Organization Address [facility] Co de Phone Number [facility] [address] [place] [address], [place] * ANTI HCV (05/04/2023 11:32 AM CDT) Pathologist [facility] HEPATITIS C ANTIBODY Non-Reacti ve Non-React aletha 05/04/2023 10:41 PM CDT [facility] TRA [facility] Comment:Please note, per www .CDC.gov: If a patient is known to be at high risk of HCV infection, or is symptomatic, and the physician's suspicion of HCV infection is high, HCV RNA testing is often employed and is of diagnostic value, even after an initial negative anti-HCV test result. Blood BLOOD SPECIMEN / Unknown Venipuncture / Unknown 05/04/2023 11:32 AM CDT 05/04/2023 11:40 AM CDT us Carmen Enriquez MD SEND OUTS Final Result Performing Organization Address City/[facility]/ZIP Co de Phone Number [facility] [address] [place] [address], * ANTI HIV 1/2 (05/04/2023 11:32 AM CDT) Pathologist [facility] HIV-1/HIV-2 SCREEN Non-Reacti ve Non-Reacti ve 05/04/2023 10:44 PM CDT [facility] TRAL LABORATORY Comment:HIV-1 p24 and HIV-1/ HIV-2 Ab Not Detected. Blood BLOOD SPECIMEN / Unknown Venipuncture / Unknown 05/04/2023 11:32 AM CDT 05/04/2023 11:40 AM CDT us Carmen Enriquez MD SEND OUTS Final Result [facility] [address] [place] [address], [place] from Last 3 Months or Most Recently Relevant to Health Maintenance Insurance * Guarantor: Marisol Esquivel Account Type Relation to Patient Date of Phone Billing Address Personal/Family Self 2005 [address] [place] [id number] MEDICAID [facility] SHARED [facility] Advance Directives * Full Code (Latest Code Status on File) Date Activated Date Inactivated Comments 06/28/2024 3:11 PM 06/28/2024 10:57 PM Question Answer Comments Code Status Discussion: Reviewed Preferences * Full Code Date Activated Date Inactivated Comments 01/02/2024 2:29 PM 01/03/2024 8:48 PM Question Answer Comments Code Status Discussion: Reviewed Preferences * Full Code Date Activated Date Inactivated Comments 10/30/2023 7:53 AM 11/01/2023 3:35 PM Question Answer Comments Code Status Discussion: Reviewed Preferences * Full Code Date Activated Date Inactivated Comments 09/25/2023 5:00 PM 09/29/2023 5:12 PM Question Answer Comments Code Status Discussion: Reviewed Preferences * Full Code Date Activated Date Inactivated Comments 04/28/2023 4:08 PM 04/29/2023 10:00 AM Question Answer Comments Code Status Discussion: Reviewed Preferences Care Teams Electromechanical Assembly Technician Relationship Specialty Start Date End Date Pcp, No . PCP - General 01/02/24 Yun Blake MD Obstetrics and Gynecology 04/25/22 Carmen Enriquez MD [address] [place] [address] Referring Provider Obstetrics and Gynecology 05/04/23 Sonia Saleh, [place] [address] [place], [place] [id number] Registered Nurse Registered Nurse 09/27/23
[2025-02-01 03:41] VITALS: BP 125/85; PULSE 60; RESP 18; TEMP 36.7; O2SAT 99
[2025-02-01 03:42] VITALS: BP 125/85; PULSE 60; RESP 18; TEMP 36.7
== END 2025-02-01 03:42 | disposition home or self-care (01) ==
PROVIDERS: Emergency Provider Emergency Medicine
DX: R10.9 Unspecified abdominal pain (principal); G89.29 Other chronic pain
CPT/HCPCS: 36415; 80053; 81001; 82077; 83690; 84703; 85025; 96374; 96375; 99284; 99285; J1308; J1885; J2405; J7030

== ENCOUNTER 2025-03-06 19:05 | Emergency (ER) | payer OTHER, SELFPAY ==
--- OUTSIDE RECORDS SUMMARY | 2025-03-06 19:07 | XMS_ITS | Clinical Summary ---
Author Organization [facility] Address [address] [place] [address] Care Team Providers Care Electrical And Instrument Mechanic Name Role Phone None Reported, Pcp Primary Care Provider Unavail able Source Comments Patient records contain information from all sites at [facility]. For routine questions regarding patient records, call [phone] during business hours, M-F 8:00 AM - 5:00 PM Central Time. Record requests for emergency care only can be directed to [phone] at any time.[facility] Allergies No known active allergies Medications No known medications Encounters Date Type Department Care Team Description 02/04/2025 Clinical Communication Department of Obstetrics and Gynecology in [place], [place] [address] [place] [address] Prescheduling, Provider Treatment Plan Review (External CPP review) from Last 3 Months Social History Tobacco Use Types Packs/Day Years Used Date Smoking Tobacco: Never Tobacco Cessation:Counseling Given: Not Answered Alcohol Use Standard Drinks/Week Comments Never 0 (1 standard drink = 0.6 oz pur e alcohol) Comments No Sex and Gender Information Value Date Recorded Sex Assigned at Not on file Legal Sex Female 9:10 AM REGIONAL CLIMATE CHANGE ANALYST Gender Identity Not on file Sexual Orientation Not on file Last Filed Vital Signs Vital Sign Reading Time Taken Comments Blood Pressure 114/60 05/07/2024 11:29 AM REGIONAL CLIMATE CHANGE ANALYST Pulse 56 05/07/2024 11:29 AM REGIONAL CLIMATE CHANGE ANALYST Temperature 36.4 C (97.6 F) 05/07/2024 9:19 AM REGIONAL CLIMATE CHANGE ANALYST Respiratory Rate - - Oxygen Saturation 100% 05/07/2024 11:29 AM REGIONAL CLIMATE CHANGE ANALYST Inhaled Oxygen Concentration - - Weight 96.2 kg (212 lb) 05/07/2024 9:18 AM REGIONAL CLIMATE CHANGE ANALYST Height - - Body Mass Index - [...] 04/25/2022 18 year Well Child Check-Up 04/25/2023 19 year Well Child Check-Up 04/25/2024 Well Child Check-Up ([facility]) 04/25/2024 Depression Screening (Annual PHQ-2) 07/03/2024 COVID-19 Vaccine (1 - season) 2025 Influenza Vaccine (#1) 2025 DTaP,Tdap,and Td Vaccines [...] topic Hepatitis B Screening Discontinued 05/04/2023 Insurance [facility] Care Teams Electrical And Instrument Mechanic Relationship Specialty Start Date End Date None Reported, Pcp PCP - General 05/10/24
--- OUTSIDE RECORDS SUMMARY | 2025-03-06 19:07 | XMS_ITS | Clinical Summary ---
Author Organization [employer] [facility] Address [address] [place] [id number] Care Team Providers Care Environmental Auditor Name Role Phone Yun Blake MD Unavailable [phone] Carmen Enriquez MD Unavailable Sonia Spaulding RN Unavailable Pcp, No Primary Care Provider Unavailabl e [...] for Pain. 20 Tablet 06/28/2024 8:08 PM BOILER/CHILLER TECHNICIAN 06/28/2024 Active naproxen (ALEVE) 220 mg tabletIndication s:Encounter for sterilization,St erilization consult,S/P laparoscopy with lysis of adhesions Take 1 Tablet (220 mg) by mouth every 12 hours. 40 Tablet 1 06/28/2024 8:08 PM BOILER/CHILLER TECHNICIAN 06/28/2024 Active Active Problems Problem Noted Date [...] HTN: Normal appearing ANTERIOR placenta in current ([facility] Level II 07/04/23) Short interval between pregn ancies affecting in second trimester, antepartum 07/04/2023 12/15/2023 MPP High-risk supervision 06/23/2023 12/15/2023 Overview (06/23/2023): Marisol Esquivel : 2005 [facility] ULTRASOUND/TESTING PATIENT [facility] CONSULT ON Support person name: Sash Assembler: NO ULTRASOUND TYPE: L2 REASON FOR VISIT: [...] Non-[facility] labs need to be entered in EPIC? No PERTINENT MEDS: PROCEDURES: IF FGR <10% [...] PP HTN on meds Genetic screening: Desires Jessie Panorama with gender BMI: 40.77 >30 recommended weight gain -# Level II FAS at [facility] indicated: pre- BMI>30: Yes Smoker: No HSV: Denies Ultrasound: 05/04/2023 - Single IUP at 11.6 weeks with ELMER 11/17/2023 Flu vaccine: Declined COVID-19 vaccine: Declined Pertussis Vaccine: Peds: [facility] - Dr. Merida Domestic violence screen: Denies Partners name: Latrice Donato Primigravida in first trimester 04/28/2023 07/04/2023 Nausea & vomiting 04/28/2023 07/04/2023 Abdominal pain 04/28/2023 07/04/2023 Constipation 04/28/2023 07/04/2023 Supervision of normal first , antepartum 04/21/2022 07/04/2023 Overview (10/24/2022): Estimated Date of Delivery: 11/07/22 OBHX: OB Provider:Hayden Occupation: [employer] FOB: Latrice Director Of Events: Blood type: A positive First trimester screen:Panorama [...] tion Epidur al Livin g 8 9 Willard Holley, Rylee del cid MD Complications:Intraamniotic Infection,Prolonged latent phase,Cephalopelvic Disproportion,Arrest of dilatation Delivery Location:Hospital ( [facility] [address] L&D TRIAGE) 2023 Term 37w 3d 0h 01m 0h 01m 2.6 kg (5 lb 11.7 oz) F C-Sec tion Spinal Livin g 8 9 Steff Champagnee r-Elmer ins, Jacinta hamm MD Delivery Location:Hospital ( [facility] [address] L&D TRIAGE) Comments G1: Labor [...] Comments Blood Pressure 127/57 06/29/2024 6:00 AM BOILER/CHILLER TECHNICIAN Pulse 108 07/29/2024 11:59 AM BOILER/CHILLER TECHNICIAN Temperature 36.3 C (97.4 F) 07/29/2024 11:59 AM BOILER/CHILLER TECHNICIAN Respiratory Rate 20 07/29/2024 11:59 AM BOILER/CHILLER TECHNICIAN Oxygen Saturation 100% 07/29/2024 11:59 AM BOILER/CHILLER TECHNICIAN Inhaled Oxygen Concentration - - Weight 83.9 kg (185 lb) 07/29/2024 11:59 AM BOILER/CHILLER TECHNICIAN Height 165.1 cm (5' 5) 07/29/2024 11:59 AM BOILER/CHILLER TECHNICIAN Body Mass Index 30.79 07/29/2024 11:59 AM BOILER/CHILLER TECHNICIAN Plan of Treatment Upcoming Encounters Date Type Department Care Team (Late st Contact Info) Description 03/11/2025 1:40 PM CDT Office Visit [facility] [address] [place] [address] Carmen Enriquez MD [address] [place] [id number] Health Maintenance Due Date Last Done Comments HPV series for age 9-26 (2 - 2-dose series) 03/10/2018 09/07/2017 Pap test for age 21-65 2024 Chlamydia for age 16-24 09/16/2024 09/17/19, 05/04/2023, 04/25/2022 Depression screening for age 12+ 12/14/2024 12/15/2023, 12/15/2023, 12/14/2023, Additional history exists COVID-19 vaccine series (2023- season) 2025 Influenza Vaccine (#1) 2025 BMI (ht and wt on same day) for age 18+ 06/19/2025 06/19/2024, 12/14/2023, 05/16/2023, Additional history exists Tetanus booster 08/24/2032 08/24/2022, 09/07/2017 RSV vaccine for adults or (1 - 1-dose 75+ series) 2078 Pneumococcal series for age 6-49 Aged Out [...] CDT) CHLAMYDIA PROBE Negative 2:08 AM CDT [facility] N GONORRHOEAE PROBE Negative 09/18/2023 2:08 AM CDT [facility] Other VAGINAL SWAB / Unknown Non-Blood / Unknown 09/17/2023 3:20 PM CDT 09/17/2023 3:26 PM CDT us Debi Whitaker MD MICROBIOLOGY Final Result [facility] [address] [place] [address], * ANTI HCV (05/04/2023 11:32 AM CDT) HEPATITIS C ANTIBODY Non-Reacti ve Non-React aletha 05/04/2023 10:41 PM CDT [facility] Comment:Please note, per www .CDC.gov: If [...] SEND OUTS Final Result Performing Organization Address [facility] Co de Phone Number [facility] [address] [place] [address], * ANTI HIV 1/2 (05/04/2023 11:32 AM CDT) HIV-1/HIV-2 SCREEN Non-Reacti ve Non-Reacti ve 05/04/2023 10:44 PM CDT [facility] Comment:HIV-1 p24 and HIV-1/ HIV-2 Ab Not Detected. Blood BLOOD SPECIMEN / Unknown Venipuncture / Unknown 05/04/2023 11:32 AM CDT 05/04/2023 11:40 AM CDT us Carmen Enriquez MD SEND OUTS Final Result Performing Organization Address [facility] Co de Phone Number [facility] [address] [place] [address], from Last 3 Months or Most Recently Relevant to Health Maintenance Insurance MEDICAID [facility] Advance Directives * Full Code [...] Code Status Discussion: Reviewed Preferences Care Teams Environmental Auditor Relationship Specialty Start Date End Date Pcp, No . PCP - General 01/02/24 Yun Blake MD Obstetrics and Gynecology 04/25/22 Carmen Enriquez MD [address] [place] [address] Referring Provider Obstetrics and Gynecology 05/04/23 Sonia Spaulding RN [address] [place] [address] Desi Benedict [place] [id number] Registered Nurse Registered Nurse 09/27/23
--- OUTSIDE RECORDS SUMMARY | 2025-03-06 19:07 | XMS_ITS | Clinical Summary ---
Author Organization [facility] Address [facility] [place] [address] Care Team Providers Care Infusion Pharmacist Name Role Phone Yun Blake Primary Care Provider [phone] Allergies No known active allergies Medications doxylamine [...] AM CDT - 12/07/2024 8:35 AM CDT [facility] Emergency Dept [address] [place] [address] Franklyn Vogt MD Goodwin, Shaun M, MD [...] on file Legal Sex Female 4:31 AM COLOR STRAINER Gender Identity Not on file Sexual Orientation [...] BLO OD ORDERABLES Final Result [facility] [address] Lab (1st floor, no room number) [place] [address], [place] * Lipase (12/07/2024 3:57 AM CDT) Lipase 26 13 - 60 U/L 12/07/2024 4:38 AM CDT [facility] Blood BLOOD SPECIMEN / Unknown Venipuncture / Unknown 12/07/2024 3:57 AM CDT 12/07/2024 4:11 AM CDT Franklyn Vogt MD LAB - BLO OD ORDERABLES Final Result [facility] [address] Lab (1st floor, no room number) [place] [address], [facility] * Hepatic function panel (12/07/2024 3:57 AM CDT) Pathologist [facility] Protein Total 7.3 6.4 - 8.3 g/dL [...] - BLO OD ORDERABLES Final Result LABORATORY [facility] [address] Lab (1st floor, no room number) [place] [address] * (ABNORMAL) Ethanol Level Blood (12/07/2024 3:57 AM CDT) Ethanol Level Blood 0.16(H) <=0.01 g/dL 12/07/2024 4:38 AM CDT LABORATORY Blood BLOOD SPECIMEN / Unknown Venipuncture / Unknown 12/07/2024 3:57 AM CDT 12/07/2024 4:11 AM CDT Franklyn Vogt MD LAB - BLO OD ORDERABLES Final Result LABORATORY [facility] [address] Lab (1st floor, no room number) [place] [address] * (ABNORMAL) Basic metabolic panel (12/07/2024 3:57 [...] BLO OD ORDERABLES Final Result [facility] [address] [facility] ([facility], no room number) [place] [address] * EKG 12-lead, tracing only (12/07/2024 3:54 AM CDT) Systolic Blood Pressure mmHg RADIOLOGY RESULTS Diastolic Blood Pressure mmHg RADIOLOGY RESULTS Ventricular Rate 74 BPM RAD IOLOGY RESULTS Atrial Rate 74 BPM RADIOLOG Y RESULTS MD Interval 150 ms RADIOLOG Y RESULTS QRS Duration 106 ms RADIOLO GY RESULTS QT 396 ms RADIOLOGY RESULTS QTc 439 ms RADIOLOGY RESULTS P [place] 39 degrees RADIOLOGY RESULTS R AXIS 93 degrees RADIOLOGY RESULTS T [place] 33 degrees RADIOLOGY RESULTS Interpretation ECG Unconfirmed report - interpretation of this ECG is computer generated - see medical record for final interpretation Sinus rhythm Rightward axis Nonspecific ST abnormality Abnormal ECG No previous ECGs available Confirmed by - EMERGENCY ROOM, PHYSICIAN ([id number]), editor managing newspaper MYRON BLAKE (Mendoza) on 12/09/2024 8:20:56 AM RADIOLOGY RESULTS 12/07/2024 3:54 AM CDT 12/09/2024 8:20 AM CDT us Franklyn Vogt MD ECG ORDER MAGALIS Edited Result - Final RADIOLOGY RESULTS from Last 3 Months Insurance [facility] CHO[facility] [id number] [place] [address] [facility] CHO[facility] Care Teams Infusion Pharmacist Relationship Specialty Start Date End Date Yun Blake PCP - General 04/23/23
--- OUTSIDE RECORDS SUMMARY | 2025-03-06 19:07 | XMS_ITS | Encounter Summary ---
Author Organization [facility] Address [address] [place] [address] Care Team Providers Care Paint Roller Cover Machine Setter Name Role Phone None Reported, Pcp Primary Care Provider Unavail able Reason for Visit * Reason Onset Date Comments Treatment Plan Review 02/04/2025 External C PP review Encounter Details Date Type Department Care Team (Latest Contact Info) Description 02/04/2025 Clinical Communication Department of Obstetrics and Gynecology in [place], [place] [address] [place] [address] Prescheduling, Provider Treatment Plan Review (External CPP review) Social History Tobacco Use Types Packs/Day Years Used Date Smoking Tobacco: Never Alcohol Use Standard Drinks/Week Comments Never 0 (1 standard drink = 0.6 oz pur e alcohol) Comments No Sex and Gender Information Value Date Recorded Sex Assigned at Not on file Legal 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 documented in this encounter Plan of Treatment Not on file documented as of this encounter Visit Diagnoses Not on filedocumented in this encounter Care Teams Paint Roller Cover Machine Setter Relationship Specialty Start Date End Date None Reported, Pcp PCP - General 05/10/24 documented as of this encounter
[2025-03-06 19:14] VITALS: BP 143/78; PULSE 61; RESP 18; TEMP 36.7; O2SAT 99; BMI 23.3
[2025-03-06 19:39] VITALS: BP 144/90; PULSE 60; RESP 19; O2SAT 98
--- NOTE | 2025-03-06 19:42 | ED_ITS ---
HPI - General Adult General Chief complaint: Abdominal Pain Stated complaint: Abdominal pain Time Seen by Provider: 03/06/25 19:27 Source: patient Mode of arrival: EMS Limitations: no limitations History of Present Illness HPI narrative: 19-year-old female coming in today complaining of abdominal pain that started this morning. States she has vomited a few times today. No fevers or chills. Pain is located ?everywhere?. Nothing makes it better or worse. No blood in her vomit. She denies diarrhea. Patient does have history of chronic abdominal pain. She was last seen in our ER 1 month ago with similar symptoms. Workup at that time was fairly unremarkable. Patient has had multiple abdominal surgeries in the past including x2, cholecystectomy and appendectomy, removal of the fallopian tube. She denies any drug use, denies alcohol use. But patient is very sleepy and is having a hard time cooperating. Related Data Home Medications ?Medication ?Instructions ?Recorded ?Confirmed No Known Home Medications 02/01/2510/25 Allergies Allergy/AdvReac Type Severity Reaction Status Date / Time No Known Drug Allergies Allergy Verified 03/06/25 19:16 Review of Systems Status of ROS: Reports: 10 or more systems reviewed and unremarkable except as noted in History and below [facility] Medical History Chronic abdominal pain ?R10.9 - Unspecified abdominal pain (ICD-10) ?G89.29 - Other chronic pain (ICD-10) Appendicitis ?K37 - Unspecified appendicitis (ICD-10) Biliary colic ?K80.50 - Calculus of bile duct without cholangitis or cholecystitis without obstruction (ICD-10) Surgical History History of tubal ligation ?Z98.51 - Tubal ligation status (ICD-10) History of section ?Z98.891 - History of uterine scar from previous surgery (ICD-10) History of cholecystectomy ?Z90.49 - Acquired absence of other specified parts of digestive tract (ICD- 10) History of appendectomy ?Z90.49 - Acquired absence of other specified parts of digestive tract (ICD- 10) Social History Smoking Status: Never smoker Second hand tobacco smoke exposure: No How often do you have a drink containing alcohol: never AUDIT-C Alcohol total score: 0 Non-prescribed substance use: denies use Exam Narrative: Exam Narrative: Well-nourished well-developed patient, very sleepy. Have to repeat questions multiple times before she answers. Answers are appropriate. Alert and oriented x3. Thoughts are goal oriented and rational. No tangential or magical thinking noted. Patient speaks in full sentences without needing to catch her breath. She has vitally stable. HEENT: Normocephalic atraumatic. Pupils are equally round reactive to light. Extraocular muscles are intact. Conjunctivae are moist without any icterus noted. Moist mucous membranes. Posterior pharynx is normal. Neck is soft without any lymphadenopathy or thyromegaly. No masses are appreciated. Cardiovascular: Heart is regular rate and rhythm S1 and S2 are present without any murmurs. Lungs: Clear to auscultation bilaterally no wheezes rhonchi or rales are appreciated. Patient takes deep breaths without any discomfort. Abdomen: Soft and nondistended with normal bowel sounds. No guarding or rebound. No masses or organomegaly appreciated. Patient does not seem to be bothered if I auscultate her abdomen with very deep pressure with the stethoscope but yells from her sleepy state in discomfort with minimal palpation when I use my hands. Extremities: Bilateral lower extremities are without edema. Normal DP and PT pulses. Skin: Well perfused without any obvious rashes. Const: Vital Signs, click to edit/add: Vital Signs - 24 hr 03/06/25 19:14 Temperature 98.0 F Pulse Rate [Right Pulse Oximeter] 61 Respiratory Rate 18 Blood Pressure [Ri ght Upper Arm] 143/78 H Pulse Oximetry 99 Oxygen Delivery Me thod Room Air Course Course ED Course: While reviewing patient's medical records it appears that she had a very similar presentation 1 month ago including the appearance of being sleepy. But per nursing staff was present at that time when she was discharged she was suddenly able to get up without any difficulty. Unclear if there is a psychiatric under lay to her condition today. I did review patient's ER visit from July on epic, it states that she has had multiple ER visits with the same concerns and that in the past she has had a significant workup including GI consultation, ultrasound, abdominal MRI, gastric emptying studies. During this visit in July she was requesting to go home to take a hot shower and stated that that was the only thing that helped with her vomiting. Cyclic vomiting syndrome was considered at that time. It was also mention that droperidol seem to be the only thing that helped with her symptoms. IV established, 1 L of normal saline was ordered. Patient already received droperidol in the ambulance. EKG, read by me, shows sinus bradycardia with a pulse of 56. CBC unremarkable. Normal lactate. Chemistries unremarkable. Normal LFTs. Normal lipase. Normal CRP. Normal procalcitonin. UA 4+ ketones, 2+ protein, 1+ bili Urine drug screen positive for THC. Patient again denies using THC. Given patient's history of thorough workup for abdominal pain and normal lab work-I did not pursue further imaging today. Patient had no more vomiting while she was here. Vital Signs Vital signs: Initial Vital Signs Temperature 98.0 F 03/06/25 19:14 Temperature Source Temporal Artery Scan 03/06/25 19:14 Pulse Rate 61 03/06/25 19:14 Respiratory Rate 18 03/06/25 19:14 Blood Pressure 143/78 H 03/06/25 19:14 Blood Pressure Mean 99 03/06/25 19:14 Blood Pressure Position Sitting 03/06/25 19:14 Pulse Oximetry 99 03/06/25 19:14 Oxygen Delivery Method Room Air 03/06/25 19:14 Vital Signs Temperature 98.0 F 03/06/25 19:14 Pulse Rate 61 03/06/25 19:14 Respiratory Rate 18 03/06/25 19:14 Blood Pressure 143/78 H 03/06/25 19:14 Pulse Oximetry 99 03/06/25 19:14 Oxygen Delivery Method Room Air 03/06/25 19:14 Temperature 98.0 F 03/06/25 19:14 Pulse Rate 61 03/06/25 19:14 Respiratory Rate 18 03/06/25 19:14 Blood Pressure 143/78 H 03/06/25 19:14 Pulse Oximetry 99 03/06/25 19:14 Oxygen Delivery Method Room Air 03/06/25 19:14 Medications Administered Medications: Discontinued Medications Generic Name Dose Route Start Last Admin Trade Name Freq PRN Reason Stop Dose Admin Sodium Chloride 1,000 mls @ 1,000 mls/hr 03/06/25 19:45 03/06/25 19:41 0.9 % Sodium Chloride 1000 Ml IV 03/06/25 20:44 1,000 mls/hr .Q1H AME Administration Medical Decision Making MDM Narrative Medical decision making narrative: 19-year-old female presenting with chronic abdominal pain and vomiting. I do think that her recurrent vomiting vomiting is from cyclic vomiting syndrome secondary to cannabinoid use. Lab Data Lab results reviewed: Yes I reviewed the patient's lab results Labs: Lab Results 03/06/25 03/06/25 Range/Units 19:38 19:55 WBC 10.96 (4.50-11.00) K/uL RBC 4.41 (4.00-5.20) m/uL Hgb 13.1 (12.0-16.0) gm/dL Hct 38.0 (33.0-51.0) % MCV 86 (80-100) fL MCH 30 (26-34) pg MCHC 35 (32-36) gm/dL RDW Coeff of Paula 13.1 (11.5-15.5) % Plt Count 195 (140-440) K/uL Neut % (Auto) 83.1 H (42.0-72.0) % Lymph % (Auto) 10.2 L (20-44) % [place] % (Auto) 5.4 (0.0-11.0) % Eos % (Auto) 0.4 (0.0-7.0) % Baso % (Auto) 0.6 (0.0-3.0) % Neut # (Auto) 9.10 H (1.7-7.0) K/uL Lymph # (Auto) 1.10 (0.90-2.90) K/uL [place] # (Auto) 0.60 (0.00-0.90) K/UL Eos # (Auto) 0.04 (0.00-0.50) K/uL Baso # (Auto) 0.07 (0.00-0.30) K/uL Abs Immat Gran (auto) 0.03 (0.00-0.30) K/uL Imm/Tot Granulo (auto) 0.3 % Sodium 140 (135-149) mmol/L Potassium 3.4 L (3.6-5.1) mmol/L Chloride 106 (96-114) mmol/L Carbon Dioxide 21 (20-32) mmol/L Anion Gap 13 (7-15) mEq/L BUN 10 (5-24) mg/dL Creatinine 0.9 (0.5-1.5) mg/dL Estimated Creat Clear 88.97 Estimated GFR 93 ml/min Glucose 159 H (60-115) mg/dL Lactate 1.9 (0.5-1.9) mmol/L Calcium 9.3 (8.4-10.6) mg/dL Total Bilirubin 1.2 (0.1-1.5) mg/dL Direct Bilirubin 0.3 (0.0-0.5) mg/dL AST 28 (12-35) U/L ALT 27 (4-35) U/L Alkaline Phosphatase 43 (40-150) U/L C-Reactive Protein < 0.5 L (0.5-1.0) mg/dL Total Protein 7.5 (6.0-8.3) g/dL Albumin 4.4 (3.3-5.0) g/dL Lipase 61 (23-300) U/L Procalcitonin < 0.03 L (<0.50) ng/mL Urine Color Yellow (Yellow) Urine Appearance Clear (Clear) Urine pH 6.0 (5.0-8.5) Ur Specific [facility] >= 1.030 (1.000-1.030) Urine Protein 2+ A (Negative) Urine Glucose (UA) Negative (Negative) Urine Ketones 4+ A (Negative) Urine Blood Trace-intact A (Negative) Urine Nitrite Negative (Negative) Urine Bilirubin 1+ A (Negative) Urine Urobilinogen 0.2 (0.2-1.0) Ur Leukocyte Esterase Negative (Negative) Urine RBC 0-2 (0-2) Urine WBC 0-2 (0-5) Ur Squamous Epith Cells None (None-Few) Urine Bacteria None (None) Urine HCG, Qual Negative (Negative) Salicylates < 1.0 L (1.0-10) mg/dL Urine Opiates Screen Negative (Negative) Ur Oxycodone Screen Negative (Negative) Urine Methadone Screen Negative (Negative) Acetaminophen < 10.0 (10.0-30.0) ug/mL Ur Barbiturates Screen Negative (Negative) U Tricyclic Antidepress Negative (Negative) Ur Phencyclidine Scrn Negative (Negative) Ur Amphetamines Screen Negative (Negative) U Methamphetamines Scrn Negative (Negative) U Benzodiazepines Scrn Negative (Negative) Urine Cocaine Screen Negative (Negative) U Marijuana (THC) Screen POSITIVE A (Negative) Ur Drug Screen Comment See Note Ethyl Alcohol < 0.01 (0.01-0.03) % ECG Data Attestation: I personally reviewed and interpreted this ECG as follows: Discharge Plan Discharge Clinical Impression: Cyclic vomiting syndrome, Chronic abdominal pain Patient Disposition: Home, Self-Care Condition: Stable Additional Instructions: Your blood work was normal today. No evidence of infection or inflammation. Your recurrent vomiting is likely due to marijuana use. Recommend cessation of marijuana use. Vomiting can continue even after you stop marijuana use for a few months. Prescriptions: No Action No Known Home Medications Follow Up/Referrals: Provider,Not a Local [Primary Care Provider, Family Practice] Stand Alone Forms: [employer] Info Instructions
[2025-03-06 20:06] LABS: Lactate* 1.9 mmol/L (0.5-1.9)
[2025-03-06 20:09] LABS: Hematocrit 38.0 % (33.0-51.0); Hemoglobin* 13.1 gm/dL (12.0-16.0); Immature Granulocytes Abs Auto 0.03 K/uL (0.00-0.30); Immature Granulocytes Pct Auto 0.3 %; Lymphocytes Absolute Auto 1.10 K/uL (0.90-2.90); Mean Corpuscular HGB Conc 35 gm/dL (32-36); Mean Corpuscular Hemoglobin 30 pg (26-34); Mean Corpuscular Volume 86 fL (80-100); RDW Coefficient of Variation % 13.1 % (11.5-15.5); Red Blood Count 4.41 m/uL (4.00-5.20); White Blood Count* 10.96 K/uL (4.50-11.00)
[2025-03-06 20:10] LABS: Slide Review Reflex No
[2025-03-06 20:25] LABS: Albumin* 4.4 g/dL (3.3-5.0); Chloride* 106 mmol/L (96-114)
[2025-03-06 20:26] LABS: Potassium* 3.4 mmol/L (3.6-5.1); Sodium* 140 mmol/L (135-149)
[2025-03-06 20:28] LABS: Blood Urea Nitrogen* 10 mg/dL (5-24); Creatinine* 0.9 mg/dL (0.5-1.5); Est. Creatinine Clearance* 88.97; Estimated Glomerular Filt Rate 93 ml/min
[2025-03-06 20:29] LABS: Alanine Aminotransferase* 27 U/L (4-35); Alkaline Phosphatase* 43 U/L (40-150); Anion Gap 13 mEq/L (7-15); Aspartate Amino Transferase* 28 U/L (12-35); Bilirubin Direct* 0.3 mg/dL (0.0-0.5); Bilirubin Total* 1.2 mg/dL (0.1-1.5); Calcium* 9.3 mg/dL (8.4-10.6); Carbon Dioxide* 21 mmol/L (20-32); Glucose* 159 mg/dL (60-115); Total Protein* 7.5 g/dL (6.0-8.3)
[2025-03-06 20:31] LABS: Acetaminophen* < 10.0 ug/mL (10.0-30.0); Ethanol* < 0.01 % (0.01-0.03); Salicylate* < 1.0 mg/dL (1.0-10)
[2025-03-06 20:45] LABS: Procalcitonin* < 0.03 ng/mL (<0.50)
[2025-03-06 21:06] LABS: Appearance Urine Clear (Clear)
[2025-03-06 21:11] LABS: Cannabinoid Screen Urine POSITIVE (Negative); Methamphetamines Screen Urine Negative (Negative); Tricyclic Antidepressant Urine Negative (Negative)
[2025-03-06 21:20] LABS: Ur HCG Qualitative* Negative (Negative)
== END 2025-03-06 21:46 | disposition home or self-care (01) ==
LOC: ED 21:30
PROVIDERS: Emergency Provider Family Medicine
DX: R10.9 Unspecified abdominal pain (principal); R11.15 Cyclical vomiting syndrome unrelated to migraine
CPT/HCPCS: 36415; 80048; 80076; 80143; 80179; 80306; 81001; 81025; 82077; 83605; 83690; 84145; 84443; 85025; 86140; 87086; 93005; 94761; 96360; 99284; J7030